=== PATIENT | male | born 1960 | race Caucasian/White ===

== ENCOUNTER 2018-11-18 20:43 | Emergency (ER) | payer BC ==
[~2018-11-18] VITALS: Wt 94.2 kg
[~2018-11-18 20:43] MED LIST: ASPI-650 PO; ATOR20TA17 PO
[2018-11-18 20:48] VITALS: BP 146/94; PULSE 77; RESP 18
[2018-11-19] MEDS ORDERED: HYDR-4011 PO (01:24)
[2018-11-19] MEDS ORDERED: PRED20TA PO (01:24)
[2018-11-19] MEDS ORDERED: HYDROCODONE/APAP (10/325) TAB PO ONE (01:30)
[2018-11-19] MEDS ORDERED: predniSONE 20 MG TAB PO ONE (01:30)
--- NOTE | 2018-11-19 01:31 | ERD ---
ER Documentation Chief Complaint Chief Complaint R FOOT PAIN, SWELLING, HOT TO TOUCH X'S 2 DAYS HPI 58-year-old male presents with complaint of pain to the joint of the first right toe for the past 2 days. States that it is hot to touch and swollen. States that he was just recently on vacation and ate a lot of meat and drank a lot of alcohol. Denies having history of gout. Denies any trauma to the toe. Denies any numbness, tingling, fevers, chills. Denies any treatments. Allergic to penicillin ROS All systems reviewed and are negative except as per history of present illness. Medications Home Meds Active Scripts Prednisone* (Prednisone*) 20 Mg Tab, 40 MG PO DAILY for gout for 7 Days, TAB Prov:KAYLEIGH LOMELI 11/19/18 Hydrocodone/Acetaminophen ([place] 5-325 Tablet) 1 Each Tablet, 1 TAB PO Q6H PRN for PAIN, #15 TAB Prov:KAYLEIGH LOMELI 11/19/18 Reported Medications Aspirin (Aspirin) 81 Mg Tablet, 1 TAB PO DAILY 09/13/11 Atorvastatin (Lipitor) 20 Mg Tablet, 1 TAB PO PRN 09/13/11 Allergies Allergies: Coded Allergies: Penicillins (Verified Allergy, 09/13/11) PMhx/Soc History of Surgery: No Anesthesia Reaction: No Hx Neurological Disorder: No Hx Respiratory Disorders: No Hx Cardiac Disorders: Yes (HIGH CHOLESTEROL) Hx Psychiatric Problems: No Hx Miscellaneous Medical Probl: No Hx Alcohol Use: No Hx Substance Use: No Hx Tobacco Use: No FmHx Family History: No diabetes, No coronary disease, No other Physical Exam Vitals Vital Signs Date Temp Pulse Resp B/P (MAP) Pulse Ox O2 O2 Flow FiO2 Time Delivery Rate 11/18/18 98.4 77 18 146/94 98 20:48 (111) Physical Exam Const: No acute distress Head: Atraumatic Eyes: Normal Conjunctiva ENT: Normal External Ears, Nose and Mouth. Neck: Full range of motion. No meningismus. Resp: Clear to auscultation bilaterally Cardio: Regular rate and rhythm, no murmurs Abd: Soft, non tender, non distended. Normal bowel sounds Skin: No petechiae or rashes Back: No midline or flank tenderness Right foot: Tenderness to palpation over the lateral first MTP of right foot with some overlying edema and erythema. There is no bony deformity noted. Overlying skin is intact. Distal sensation is intact. Neur: Awake and alert Psych: Normal Mood and Affect Results 24 hrs Current Medications Medications Dose Sig/Mayuri Start Time Status Last (Trade) Ordered Route PRN Stop Time Admin Dose Reason Admin 1 tab ONCE ONCE 11/19/18 Acetaminophen PO 01:30 11/19/18 / 01:31 Hydrocodone Bitart ([place] (10/325)) Prednisone 40 mg ONCE ONCE 11/19/18 (Prednisone) PO 01:30 11/19/18 01:31 Procedures/MDM MDM: Patient's presentation is consistent with gout. Patient was given prednisone and [place] in the ER. Patient stated that he was can have someone pick him up so driving is not a concern. Patient was discharged with a course of 7 days of prednisone as well as [place] for breakthrough pain. Patient advised not to take [place] if driving or using machinery. Patient advised to stop taking the prednisone once the gout flareup resolves. Patient educated that gout is a chronic condition which must be treated by his primary care physician. I have low suspicion for neurovascular compromise, compartment syndrome, fracture, osteomyelitis, septic joint, or other emergent condition. Patient discharged with strict ER precautions. Patient advised to follow up with PMD. All questions answered at discharge. Departure Diagnosis: Primary Impression: Gout attack Gout site: foot Gout etiology: unspecified cause Laterality: right Qualified Codes: M10.9 - Gout, unspecified Condition: Stable Patient Instructions: What Is Gout?, Treating Gout Attacks, Gout Diet Referrals: [facility] YOU HAVE RECEIVED A MEDICAL SCREENING EXAM AND THE RESULTS INDICATE THAT YOU DO NOT HAVE A CONDITION THAT REQUIRES URGENT TREATMENT IN THE EMERGENCY DEPARTMENT. FURTHER EVALUATION AND TREATMENT OF YOUR CONDITION CAN WAIT UNTIL YOU ARE SEEN IN YOUR DOCTORS OFFICE WITHIN THE NEXT 1-2 DAYS. IT IS YOUR RESPONSIBILITY TO MAKE AN APPOINTMENT FOR FOLOW-UP CARE. IF YOU HAVE A PRIMARY DOCTOR --you should call your primary doctor and schedule an appointment IF YOU DO NOT HAVE A PRIMARY DOCTOR YOU CAN CALL OUR PHYSICIAN REFERRAL HOTLINE AT IF YOU CAN NOT AFFORD TO SEE A PHYSICIAN YOU CAN CHOSE FROM THE FOLLOWING [facility] [address] [facility]. [facility] [address] [facility]. [facility] [address] [facility]. [facility] [address] [facility] [address] [facility]. [facility]. [address] Additional Instructions: Take the prednisone until the flareup resolves. You can take [place] for breakthrough pain but do not take if you are going to drive or use any machinery. FOLLOW UP WITH YOUR PRIMARY CARE PHYSICIAN TOMORROW.Return to this facility if you are not improving as expected. KAYLEIGH LOMELI November 19, 2018 01:31
== END 2018-11-19 01:40 | disposition home or self-care (01) ==
LOC: FTE 20:43
DX: M10.9 Gout, unspecified (principal); Z79.82 Long term (current) use of aspirin
CPT/HCPCS: 99283; J7512